=== PATIENT | female | born 1975 | race Caucasian/White ===

== ENCOUNTER → 2016-11-20 | Outpatient (CLI) | payer BC | END | disposition home or self-care (01) | LOC: C.LABSPEC 17:46 | PROVIDERS: ATTEND Obstetrics & Gynecology | DX: N76.2 Acute vulvitis (principal) ==

== ENCOUNTER → 2016-12-30 | Outpatient (CLI) | payer BC | END | disposition home or self-care (01) | LOC: C.PAPS 17:27 | PROVIDERS: ATTEND Obstetrics & Gynecology | DX: Z01.419 Encounter for gynecological examination (general) (routine) without abnormal findings (principal) ==

== ENCOUNTER → 2017-03-25 | Outpatient (CLI) | payer BC ==
[2017-03-25 09:35] LABS: URINE APPEARANCE CLEAR (CLEAR); URINE BILIRUBIN NEG (NEG); URINE COLOR YELLOW; URINE EPITHELIAL CELL AUTO 0-5 /lpf (0-5); URINE NITRITE NEG (NEG); URINE PH 6.5 (4.5-7.5); URINE SPECIFIC GRAVITY 1.023 (1.000-1.030); UROBILINOGEN NEG (NEG); ZZUR CULT IF INDIC CLEAN CATCH NO
[2017-03-25 09:36] LABS: MANUAL MICROSCOPIC REQUIRED? NO; REVIEW REQ? NO
[2017-03-25 09:49] LABS: CALCIUM 8.9 mg/dl (8.5-10.1)
[2017-03-25 09:56] LABS: BLOOD UREA NITROGEN 22 mg/dl (7-18); BUN/CREATININE RATIO 28.1 (10-20); CARBON DIOXIDE 27 mmol/L (21-32); CHLORIDE 103 mmol/L (98-107); CHOLESTEROL 184 mg/dl (0-200); CREATININE 0.78 mg/dl (0.60-1.20); GLUCOSE 80 mg/dl (70-99); SODIUM 137 mmol/L (136-145); TRIGLYCERIDES 35 mg/dl (0-150); VERY LOW DENSITY LIPOPROT CALC 7 mg/dl
[2017-03-25 10:00] LABS: CHOLESTEROL/HDL RATIO 1.9; HDL CHOLESTEROL 97 mg/dl; LDL CHOLESTEROL CALCULATED 80 mg/dl; PHOSPHORUS 4.1 mg/dl (2.5-4.9)
[2017-03-25 10:10] LABS: URINE COLLECTION TIME 24 HOURS
[2017-03-25 10:11] LABS: CALCIUM URINE < 5.0 mg/dl
== END | disposition home or self-care (01) ==
LOC: C.LAB1850 07:13
PROVIDERS: ATTEND Family Medicine
DX: E21.3 Hyperparathyroidism, unspecified (principal); E28.319 Asymptomatic premature menopause; E55.9 Vitamin D deficiency, unspecified; M85.80 Other specified disorders of bone density and structure, unspecified site; E61.8 Deficiency of other specified nutrient elements; M25.561 Pain in right knee; M25.562 Pain in left knee

== ENCOUNTER → 2017-04-03 | Outpatient (CLI) | payer BC | END | disposition home or self-care (01) | LOC: C.MAMM 09:40 | PROVIDERS: ATTEND Internal Medicine Rheumatology | DX: E55.9 Vitamin D deficiency, unspecified (principal); M85.89 Other specified disorders of bone density and structure, multiple sites; E61.8 Deficiency of other specified nutrient elements ==

== ENCOUNTER → 2017-12-23 | Outpatient (CLI) | payer OTHER ==
--- NOTE | 2017-12-24 14:01 | MAMMOGRAPHY REPORT ---
BILATERAL DIGITAL SCREENING MAMMOGRAM TOMOSYNTHESIS WITH CAD: 12/23/2017 CLINICAL HISTORY: Routine screening. Patient has no complaints. TECHNIQUE: Breast tomosynthesis in addition to standard 2D mammography was performed. Current study was also evaluated with a Computer Aided Detection (CAD) system. COMPARISON: Comparison is made to exams dated: 04/02/2016 mammogram, 03/20/2016 mammogram - [facility], and 12/24/2005 mammogram. BREAST COMPOSITION: The tissue of both breasts is heterogeneously dense, which may obscure small mas ses. FINDINGS: There is no definite architectural distortion in the lateral right breast in the area of pr ior questionable distortion seen on the 03/20/2016 mammograms. No microcalcifications are currently identified in the right breast. There is stable asymmetry in the posterior left breast along the pos terior nipple line on the MLO view. No suspicious mass, architectural distortion or cluster of micro calcifications is seen. IMPRESSION: ACR BI-RADS CATEGORY 1: NEGATIVE 1. There is no mammographic evidence of malignancy. 2. Previously observed questionable architectural distortion in microcalcifications in the right neyda ast are no longer seen, confirming benignity. A 1 year screening mammogram is recommended. The patient will receive written notification of the results. Approximately 10% of breast cancers are not detected with mammography. A negative mammographic report should not delay biopsy if a clinically suggestive mass is present. Radha Starks M.D. ay/:12/23/2017 16:51:48 [employer]astic [employer]sembler: Krys DUARTE(Terri)(Leonardo)(SILVA), [facility] letter sent: Normal 1/2 BI-RADS Code: ACR BI-RADS Category 1: Negative
== END | disposition home or self-care (01) ==
LOC: C.MAMM 12:19
PROVIDERS: ATTEND Family Medicine
DX: Z12.31 Encounter for screening mammogram for malignant neoplasm of breast (principal)